=== PATIENT | female | born 1965 | race Hispanic/Latino ===

== ENCOUNTER 2018-06-05 16:59 | Emergency (ER) | payer MEDICAID ==
[2018-06-05] MEDS ORDERED: DEXAMETHASONE SOD PHOSPHATE 10MG/ML 1ML VIAL ONE (18:05)
[2018-06-05] MEDS ORDERED: GUAIFENESIN-CODEINE 5 ML SYRUP ONE (18:05)
[2018-06-05] MEDS ORDERED: IPRATROPIUM/ALBUTEROL SULFATE 3 ML SOLUTION IH ONE (18:11)
[2018-06-05] MEDS ORDERED: ACETAMINOPHEN 325 MG TAB ONE (19:14)
[2018-06-05] MEDS ORDERED: ALBUTEROL SULFATE 0.083% 2.5 MG/3 ML INH IH ONE (19:39)
== END 2018-06-05 19:55 | disposition home or self-care (01) ==
LOC: EDH 16:59
DX: J20.9 Acute bronchitis, unspecified (principal); M19.90 Unspecified osteoarthritis, unspecified site
CPT/HCPCS: 94640 ×2; 96372; 99284; J1100

== ENCOUNTER → 2018-08-14 | Outpatient (CLI) | payer MEDICAID | END | disposition home or self-care (01) | LOC: OIH 11:42 | PROVIDERS: ATTEND Family Medicine | DX: M17.0 Bilateral primary osteoarthritis of knee (principal) | CPT/HCPCS: 73560 ==

== ENCOUNTER → 2019-01-05 | Outpatient (CLI) | payer MEDICAID | END | disposition home or self-care (01) | LOC: OIH 10:12 | PROVIDERS: ATTEND Family Medicine | DX: Z01.818 Encounter for other preprocedural examination (principal); I10 Essential (primary) hypertension | CPT/HCPCS: 71046 ==

== ENCOUNTER → 2020-02-27 | Outpatient (CLI) | payer MEDICARE | END | disposition home or self-care (01) | LOC: SLP 20:24 | PROVIDERS: ATTEND Family Medicine | DX: G47.33 Obstructive sleep apnea (adult) (pediatric) (principal); E66.01 Morbid (severe) obesity due to excess calories | CPT/HCPCS: 95810 ==

== ENCOUNTER → 2020-07-04 | Outpatient (CLI) | payer MEDICARE ==
[2020-06-06] MEDS: REGADENOSON 0.4 MG/5 ML PF SYG IVP SCH (08:59)
--- NOTE | 2020-06-06 09:00 | NUR ---
TESTING WAS R/S TO A NEW DOS
[2020-06-13] MEDS: REGADENOSON 0.4 MG/5 ML PF SYG IVP SCH (09:00)
[2020-07-04] MEDS: REGADENOSON 0.4 MG/5 ML PF SYG IVP SCH (11:33)
== END | disposition home or self-care (01) ==
LOC: SHCH 07:54
PROVIDERS: ATTEND Internal Medicine Cardiovascular Disease
DX: R07.9 Chest pain, unspecified (principal)
CPT/HCPCS: 78452; 93017; 96374; A9500 ×2; J2785

== ENCOUNTER → 2022-04-26 | Outpatient (CLI) | payer MEDICARE | END | disposition home or self-care (01) | LOC: RAH 13:06 | PROVIDERS: ATTEND Family Medicine | DX: Z12.31 Encounter for screening mammogram for malignant neoplasm of breast (principal) | CPT/HCPCS: 77067 ==

== ENCOUNTER → 2024-04-30 | Outpatient (CLI) | payer OTHER, MEDICARE ==
[2024-04-30 21:39] VITALS: PULSE 67; RESP 12
[2024-04-30 22:06] VITALS: PULSE 55; RESP 16
[2024-04-30 22:32] VITALS: PULSE 62; RESP 12
[2024-04-30 22:57] VITALS: PULSE 54; RESP 12
[2024-04-30 23:40] VITALS: PULSE 61; RESP 14
[2024-05-01] VITALS (9 sets, daily range): PULSE 53–72; RESP 12–14
== END | disposition home or self-care (01) ==
LOC: SLP 19:45
PROVIDERS: ATTEND Family Medicine
DX: G47.33 Obstructive sleep apnea (adult) (pediatric) (principal)
CPT/HCPCS: 95810

== ENCOUNTER → 2025-01-10 | Outpatient (CLI) | payer OTHER, MEDICARE ==
--- NOTE | 2025-01-10 17:10 | HMCIMG ---
US PELVIC NON-OB COMP HISTORY: Pelvic and perineal pain COMPARISON: None TECHNIQUE: Transabdominal pelvic ultrasound study was performed. FINDINGS: The uterus measures 8.3 x 3.5 x 4 cm. Both ovaries are not seen. The study is limited due to patient's large body habitus and overlying bowel gas. Endometrial thickness is 5 mm. No free fluid is seen in the cul-de-sac. IMPRESSION: 1. No adnexal mass is seen.
== END | disposition home or self-care (01) ==
LOC: RAH 14:40
PROVIDERS: ATTEND Family Medicine
DX: R93.89 Abnormal findings on diagnostic imaging of other specified body structures (principal); R10.2 Pelvic and perineal pain
CPT/HCPCS: 76856

== ENCOUNTER 2025-05-01 13:20 | Emergency (ER) | payer OTHER, MEDICARE ==
[~2025-05-01] VITALS: Ht 160 cm; Wt 156.9 kg
[~2025-05-01 13:20] MED LIST: ALBU90AE3 IH; BUDE10.22 IH; FURO40TA7 PO; LEVO750T68 PO; PRED20TA3 PO
[2025-05-01] MEDS: LIDOCAINE HCL 1% 20 ML VIAL INJ STA (14:11)
--- NOTE | 2025-05-01 14:32 | ERN ---
General Chief Complaint: Laceration/Avulsion Stated Complaint: LACERATION TO LEFT LOWER LEG Time Seen by MD: 13:22 Source: patient History of Present Illness Initial Comments Patient is a 59-year-old female coming in complaining of lower extremity lace ration. Per patient she was ambulating tripped and draped her left lower kevin region. Allergies: Coded Allergies: No Known Drug Allergies (Unverified Allergy, Unknown, 06/05/20) Home Meds Active Scripts Furosemide (Lasix 40Mg Tab) 40 Mg Tablet, 1 TAB PO DAILY for 30 Days, #30 TAB 0 Refills Prov:MARÍA ELENA SUMMERS NP 04/01/25 Albuterol Sulfate (Proair Digihaler) 90 Mcg Aer.pw.bas, 90 MCG IH [id number], #30 10 Prov:MARÍA ELENA SUMMERS NP 04/01/25 Budesonide/Formoterol Fumarate (Symbicort 80-4.5 Mcg Inhaler) 80 Mcg-4.5 Mcg/Actuation Inhr, 2 PUFF IH BID for 30 Days, #30 GM 0 Refills Prov:MARÍA ELENA SUMMERS NP 04/01/25 Prednisone (Prednisone) 20 Mg Tablet, 40 MG PO DAILY for 7 Days, #7 TAB Prov:MARÍA ELENA SUMMERS NP 04/01/25 Levofloxacin (Levaquin 750Mg Tabs) 750 Mg Tablet, 1 TAB PO DAILY for 5 Days, #10 TAB 0 Refills Prov:MARÍA ELENA SUMMERS NP 04/01/25 Past Medical History Past Medical History: Asthma, Diabetes-Type II, High Cholesterol, Hypertension, Pneumonia Past Surgical History: Cholecystectomy Surgical History Other: MARIA TERESA KNEE REPLACEMENTS Female( History) History: Not Applicable ROS Dictation CONSTITUTIONAL: No chills, no fever, no weakness, no diaphoresis, no malaise. HEAD/FACE: No signs of trauma. EENT: No eye pain, no blurred vision, no tearing, no double vision, no ear pain, no ear discharge, no nose pain, no nasal congestion, no throat pain, no t hroat swelling, no mouth pain. RESPIRATORY: No cough, no orthopnea, no SOB, no stridor, no wheezing. CARDIOVASCULAR: No chest pain, no edema, no palpitations, no syncope. GASTROINTESTINAL/ABDOMINAL: No abdominal pain, no constipation, no diarrhea, n o nausea, no vomiting. GENITOURINARY: No abnormal discharge, no dysuria, no frequent urination, no hematuria. No complaints of pain in the genitals. MUSCULOSKELETAL: No back pain, no gout, no joint pain, no joint swelling, no muscle pain, no muscle stiffness, no neck pain. INTEGUMENTARY: No change in color, no change in hair/nails, no dryness, lesion, no lumps, no rash. NEUROLOGICAL/PSYCH: No anxiety, not depressed, no emotional problem, no headache, no numbness, no pre-existing deficit, no history of seizures, no tremors, no weakness. HEMATOLOGIC/LYMPHATIC: Not anemic, no history of blood clots, no apparent bleeding, no bruising, glands not swollen. All Systems Negative, Except as Noted. Physical Exam Physical Exam Dictation VITAL SIGNS: Reviewed. GENERAL APPEARANCE: Alert, oriented x3, no acute distress, obese. HEAD AND FACE: Non-traumatic. EYES: PERRL, pink conjunctivas, eyelid no trauma, anterior chamber clear. EARS: Pinnas intact and no signs of trauma or erythema. Ear canals clear and no discharge. TMs no erythema. NOSE: No discharge, no bleeding. OROPHARYNX: Mouth normal, teeth no caries, tongue pink. Pharynx clear, no erythema. Tonsils no exudates, no abscesses noted. Mucous membrane moist. NECK: Supple, non-tender, no thyromegaly, no masses, no JVD, no bruits. BREAST: Deferred. CHEST: No tenderness, no crepitus, no paradoxical movement, no retractions. LUNGS: Clear, well-ventilated, symmetric, no rales, no wheezing, no rhonchi, no stridor, good breath sounds bilaterally. HEART: Regular rate, regular rhythm, no murmur, no gallops. VASCULAR: No peripheral edema. ABDOMEN: Soft, positive bowel sounds, nondistended, no guarding, nontender, no rebound, no masses no hepatomegaly, no splenomegaly, no Mora's sign, no hernias. RECTAL: Deferred. GENITAL: Deferred. NEUROLOGICAL: Normal speech, gross motor function intact, gross sensory function intact. MUSCULOSKELETAL: Neck nontender, full range of motion, back nontender, full range of motion. EXTREMITIES: Nontender, full range of motion. SKIN: Color pink, dry, no turgor, no rash, 6 cm laceration in the lower left extremity semi [place] shaped, lacerations, no abrasions, no contusions. LYMPHATICS: Deferred. Results Laboratory and Microbiology Labs Reviewed?: Yes EKG/XRAY/US/CT/MRI X-RAY Comment Tib-fib lower extremity x-ray-NAD MDM MDM: Differential diagnosis: Lower extremity laceration, lower extremity contusion, Rationale: Tests considered and ordered secondary to shared decision making include: Previous outside records reviewed: Old ER visits. Risk of complication and/or morbidity or mortality of patient management: None Medications-Per medication reconciliation Need for hospitalization: Patient does not meet criteria for hospitalization. Need for emergency major/minor surgery: No Patient is a 59-year-old female coming in complaining of lower extremity pain secondary to laceration. 6 cm laceration was fixed with 12 interrupted simple sutures. Tolerated procedure well. Hemostasis obtained. He will be discharged in stable condition with a diagnosis of lower extremity contusion with a laceration. X-ray did not disclose acute findings. ED Course Orders Procedure Category Date Status Time Lidocaine Hcl 1% 20ml PHA 05/01/25 Complete Vial (Lidocaine Hc 13:58 Tetanus,Diphtheria PHA 05/01/25 Complete Tox [Adult] (Diphther 14:00 Acetaminophen 500mg PHA 05/01/25 Complete Tab (Tylenol 500mg T 14:00 Tibia/Fibula 2vws Lt RAD 05/01/25 Taken 14:37 Current Medications Medications (Trade) Dose Ordered Sig/Cass Route PRN Reason Start Time Stop Time Status Last Admin Dose Admin Acetaminophen (TYLenol 500MG TAB) 500 mg ONCE ONCE PO 05/01/25 14:00 05/01/25 14:02 DC 05/01/25 14:11 Lidocaine HCl (Lidocaine HCl 1% 20ml Vial) 20 ml ONCE STAT INJ 05/01/25 13:58 05/01/25 14:02 DC 05/01/25 14:11 Tetanus/ Diphtheria Toxoids Adsorbed (DiphthERIA-teTANUS TOXOID [ADULT]/ DECAVAC) 0.5 ml ONCE ONCE IM 05/01/25 14:00 05/01/25 14:02 DC 05/01/25 14:13 Vital Signs Date Time Temp Pulse Resp B/P (MAP) Pulse Ox O2 Delivery O2 Flow Rate FiO2 05/01/25 14:05 98.1 94 16 112/60 98 Room Air* 0 21 05/01/25 13:21 98.4 97 18 109/59 92 Room Air Laceration/Wound Repair Laceration/Wound Repair : Wound Location: lower extremity Wound Length (cm): 6 Wound's Depth, Shape: superficial Wound Explored: clean Irrigated w/ Saline (ccs): 100 Anesthesia: 1% Lidocaine Volume Anesthetic (ccs): 5 Wound Debrided: minimal Wound Repaired With: sutures Suture Size/Type: 4:0 Number of Sutures: 12 DX & DISP Disposition: Discharge Departure Impression: Primary Impression: Contusion, lower leg Additional Impression: Laceration of lower limb Condition: Stable Scripts Cephalexin Monohydrate (Keflex) 500 Mg Cap 1 CAP PO TID for 10 Days, #30 CAP 0 Refills Prov: BRANNON ARAGON MD 05/01/25 Additional Instructions: FOLLOW-UP WITH PRIMARY CARE PROVIDER IN 1 TO 2 DAYS. TAKE MEDICATIONS DIRECTED HERE IN THE EMERGENCY ROOM. OKAY TO CONTINUE HOME MEDICATIONS UNLESS OTHERWISE DISCUSSED DURING YOUR VISIT IN THE EMERGENCY ROOM TODAY. RETURN TO YOUR NEAREST EMERGENCY ROOM IF SYMPTOMS WORSEN OR IF THERE IS NO IMPROVEMENT. CALL 911 IF YOU NEED IMMEDIATE ASSISTANCE. TAKE TYLENOL [id number] NEEDED AND IF NO CONTRAINDICATIONS ARE PRESENT. INCREASE ORAL HYDRATION. A WOUND CULTURE OR URINE CULTURE WAS ORDERED HERE IN THE EMERGENCY ROOM DEPARTMENT PLEASE FOLLOW-UP WITH PRIMARY CARE PROVIDER AND ADVISE THEM TO GET REPORTS FROM OUR FACILITY. IF YOU HAD ANY IRENE WRAP/SPLINTS THAT WERE APPLIED HERE, PLEASE DO NOT REMOVE THEM UNTIL YOU SEE YOUR PRIMARY CARE OR SPECIALTY. Referrals: Referrals: OSCAR KENNEY MD (PCP) Time of Disposition: 15:07 BRANNON ARAGON MD May 01, 2025 14:32
[2025-05-01 15:05] VITALS: BP 116/60; PULSE 90; RESP 16; TEMP 98.1; O2SAT 98
--- NOTE | 2025-05-01 15:06 | NUR ---
12 SUTURES PLACED WOUND CLEAN AND INTACT WOULD CLEANDED AND BANDAGED PER MD REQUEST
[2025-05-01] MEDS ORDERED: CEPH500B PO (15:07)
--- NOTE | 2025-05-01 15:31 | HMCIMG ---
EXAM: CR Left Tibia and fibula, 3 View. CLINICAL HISTORY: laceration COMPARISON: None provided. FINDINGS: BONES: No acute fracture or aggressive appearing osseous lesion. JOINTS: No dislocation. Cemented left total knee arthroplasty is in near anatomic alignment. SOFT TISSUES: Soft tissue edema throughout the visualized left leg. This is more pronounced laterally and ventrally. IMPRESSION: 1. No acute osseous injury. 2. Soft tissue edema of the left leg. /Leigh
== END 2025-05-01 15:23 | disposition home or self-care (01) ==
LOC: EDH 13:20
DX: S81.812A Laceration without foreign body, left lower leg, initial encounter (principal); E11.9 Type 2 diabetes mellitus without complications; E78.00 Pure hypercholesterolemia, unspecified; I10 Essential (primary) hypertension; J45.909 Unspecified asthma, uncomplicated; Z79.51 Long term (current) use of inhaled steroids; Z79.52 Long term (current) use of systemic steroids; Z79.899 Other long term (current) drug therapy; Z90.49 Acquired absence of other specified parts of digestive tract; Z96.653 Presence of artificial knee joint, bilateral; W01.0XXA Fall on same level from slipping, tripping and stumbling without subsequent striking against object, initial encounter; Y93.89 Activity, other specified; Y92.89 Other specified places as the place of occurrence of the external cause; Y99.8 Other external cause status
CPT/HCPCS: 12002; 73590; 90471; 90714; 99283